=== PATIENT | female | born 1990 | race American Indian/Alaskan Native ===

== ENCOUNTER 2018-08-02 21:44 | Emergency (ER) | payer SELFPAY ==
[2018-08-02 21:56] VITALS: BP 123/83
[2018-08-02] MEDS ORDERED: NORCO 5/325 PO ONE (23:10)
--- NOTE | 2018-08-02 23:21 | Emergency Department Report ---
ED Fall HPI - General Chief Complaint: Fall Stated Complaint: FALL Time Seen by Provider: 08/02/18 23:07 Source: patient Mode of arrival: Ambulatory - History of Present Illness Initial Comments: Patient 27-year-old -[place] female who fell, coming out of a bathroom stall in a restaurant today causing pain and subjective swelling to right elbow low back and right hip is no bleeding abrasions or lacerations patient is ambulatory to himself to ER complains of 5/10 sharp pain elbow hip and low back. There is no obvious deformity MD Complaint: fall Onset/Timin -: hour(s) Fall From: standing When Fall Occurred: other (12 hrs ) Fall Witnessed: no Place Fall Occurred: other (restuarant) Loss of Consciousness: none Prolonged Down Time?: no Symptoms Prior to Fall: none Location: back, pelvis (right hip ) Location - Extremities: Right: Elbow Severity scale (0 -10): 5 Quality: sharp Context: tripped/slipped Associated Symptoms: denies - Related Data Previous Rx's Medication Instructions Recorded Last Taken Type Ibuprofen [Motrin] 800 mg PO Q8H PRN #20 tablet 01/29/15 Unknown Rx traMADol [Ultram] 50 mg PO Q6HR PRN #10 tablet 01/29/15 Unknown Rx Acetaminophen [Tylenol Extra 1,000 mg PO QID PRN #30 tablet 08/03/18 Unknown Rx Strength] Cyclobenzaprine [Flexeril] 10 mg PO BID PRN #20 tablet 08/03/18 Unknown Rx Menthol/Camphor [[place] 1 applicatio TP TID PRN #1 tube 08/03/18 Unknown Rx Ointment] Allergies Allergy/AdvReac Type Severity Reaction Status Date / Time ibuprofen [From Motrin] Allergy Swelling Verified 08/02/18 22:21 ED Review of Systems ROS: Stated complaint: FALL Other details as noted in HPI Constitutional: denies: chills, fever Eyes: denies: eye pain, eye discharge, vision change ENT: denies: ear pain, throat pain Respiratory: denies: cough, shortness of breath, wheezing Cardiovascular: denies: chest pain, palpitations Endocrine: no symptoms reported Gastrointestinal: denies: abdominal pain, nausea, diarrhea Genitourinary: denies: urgency, dysuria, discharge Musculoskeletal: back pain, myalgia, other (right elbow right hip pain ) Skin: denies: rash, lesions Neurological: denies: headache, weakness, paresthesias Psychiatric: denies: anxiety, depression Hematological/Lymphatic: denies: easy bleeding, easy bruising ED Past Medical Hx - Past Medical History Previous Medical History?: Yes Hx GERD: Yes Hx Asthma: Yes (as child) - Surgical History Past Surgical History?: No - Social History Smoking Status: Never Smoker Substance Use Type: None - Medications Home Medications: Home Medications Medication Instructions Recorded Confirmed Last Taken Type Ibuprofen [Motrin] 800 mg PO Q8H PRN #20 tablet 01/29/15 Unknown Rx traMADol [Ultram] 50 mg PO Q6HR PRN #10 tablet 01/29/15 Unknown Rx Acetaminophen [Tylenol Extra 1,000 mg PO QID PRN #30 tablet 08/03/18 Unknown Rx Strength] Cyclobenzaprine [Flexeril] 10 mg PO BID PRN #20 tablet 08/03/18 Unknown Rx Menthol/Camphor [[place] 1 applicatio TP TID PRN #1 tube 08/03/18 Unknown Rx Ointment] ED Physical Exam - General Limitations: No Limitations General appearance: alert, in no apparent distress - Head Head exam: Present: atraumatic, normocephalic - Eye Eye exam: Present: normal appearance - ENT ENT exam: Present: mucous membranes moist - Neck Neck exam: Present: normal inspection - Respiratory Respiratory exam: Present: normal lung sounds bilaterally. Absent: respiratory distress - Cardiovascular Cardiovascular Exam: Present: regular rate, normal rhythm. Absent: systolic murmur, diastolic murmur, rubs, gallop - GI/Abdominal GI/Abdominal exam: Present: soft, normal bowel sounds - Extremities Exam Extremities exam: Present: normal inspection, tenderness - Expanded Upper Extremity Exam Right Elbow exam: Present: full ROM, tenderness, pain w/ pronation/supination, tenderness over radial head. Absent: swelling, abrasion, laceration, ecchymosis , deformity, crepidus, dislocation, erythema, effusion Forearm Wrist exam: Present: normal inspection, full ROM Hand Wrist exam: Present: normal inspection, full ROM Neuro motor exam: Present: wrist extension intact, thumb opposition intact, thumb IP flexion intact, thumb adduction intact, fingers 2-5 abduction intact Neurosensory exam: Present: 2-point discrimination, radial nerve intact, ulnar nerve intact, median nerve intact Vascular: Present: normal capillary refill, radial pulse, brachial pulse, ulnar pulse. Absent: vascular compromise, Pallo, pulse deficit radial art, pulse deficit ulnar art, pulse deficit brachial art - Expanded Lower Extremity Exam Right Hip exam: Present: full ROM. Absent: tenderness, swelling, abrasion, laceration , ecchymosis, deformity, crepidus, dislocation, erythema, external rotation, internal rotation, shortening, pelvic stability Upper Leg exam: Present: normal inspection, full ROM Knee exam: Present: normal inspection, full ROM Lower Leg exam: Present: normal inspection, full ROM Ankle exam: Present: normal inspection, full ROM Foot/Toe exam: Present: normal inspection, full ROM Neuro vascular tendon exam: Present: no vascular compromise. Absent: pulse deficit Gait: Positive: observed and normal - Back Exam Back exam: Present: normal inspection, full ROM, tenderness (C), muscle spasm, paraspinal tenderness. Absent: CVA tenderness (R), CVA tenderness (L), vertebral tenderness, rash noted - Neurological Exam Neurological exam: Present: alert, oriented X3, CN II-XII intact, normal gait, motor sensory deficit. Absent: reflexes normal - Psychiatric Psychiatric exam: Present: normal affect, normal mood - Skin Skin exam: Present: warm, dry, intact, normal color. Absent: rash ED Course Vital Signs 08/02/18 21:55 Temperature 98.7 F Pulse Rate 88 Respiratory 18 Rate Blood Pressure 123/83 O2 Sat by Pulse 100 Oximetry ED Medical Decision Making - Radiology Data Radiology results: report reviewed, image reviewed X-rays normal back and elbow no fracture no soft tissue abnormalities - Medical Decision Making This is a fall and no fractures no elbow fractional back fracture noted fracture on x-rays were normal patient is ambulatory with steady gait exam supports x-ray findings there is no obvious deformity is no ecchymosis no bruising no lacerations plan treat for fall musculoskeletal pain NSAIDs and muscle relaxants moist heat therapy cryotherapy patient will follow up with PCP in 2-3 days patient will return the ED should symptoms worsen patient verbalizes agreement and understanding with discharge plan patient be DC'd home in stable condition at this time Critical care attestation.: If time is entered above; I have spent that time in minutes in the direct care of this critically ill patient, excluding procedure time. ED Disposition Clinical Impression: Musculoskeletal pain of extremity Fall Qualifiers: Encounter type: initial encounter Qualified Code(s): W19.XXXA - Unspecified fall, initial encounter Hip strain Qualifiers: Encounter type: initial encounter Laterality: right Qualified Code(s): S76.011A - Strain of muscle, fascia and tendon of right hip, initial encounter Low back strain Qualifiers: Encounter type: initial encounter Qualified Code(s): S39.012A - Strain of muscle, fascia and tendon of lower back, initial encounter Disposition: TO HOME OR SELFCARE Is pt being admited?: No Does the pt Need Aspirin: No Condition: Good Instructions: Low Back Strain (ED), Core Strengthening Exercises (GEN), Musculoskeletal Pain (ED) Prescriptions: Acetaminophen [Tylenol Extra Strength] 1,000 mg PO QID PRN #30 tablet PRN Reason: pain Cyclobenzaprine [Flexeril] 10 mg PO BID PRN #20 tablet PRN Reason: Muscle Spasm Menthol/Camphor [[place] Ointment] 1 applicatio TP TID PRN #1 tube PRN Reason: pain Referrals: PRIMARY CARE, [Primary Care Provider] - 3-5 Days Forms: Work/School Release Form(ED) Time of Disposition: 00:25
--- NOTE | 2018-08-03 00:06 | XRay Report ---
FINAL REPORT PROCEDURE: XR SPINE LUMBOSACRAL 2-3V TECHNIQUE: AP and lateral view were obtained. HISTORY: back pain s/p fall COMPARISON: No prior studies are available for comparison. FINDINGS: No fracture or subluxation is visualized. Disc spaces are well maintained. Posterior elements appear intact. Bone density appears normal. IMPRESSION: Negative exam. No acute abnormality is seen.
--- NOTE | 2018-08-03 00:07 | XRay Report ---
FINAL REPORT PROCEDURE: XR ELBOW 3+V RT TECHNIQUE: RIGHT elbow radiographs, including AP, lateral, and oblique views. CPT 74961 HISTORY: fall. Pain. COMPARISON: No prior studies are available for comparison. FINDINGS: Fracture (s) and/or Dislocation(s): None . Alignment: Normal . Joint space(s): Normal . Soft tissues: Normal . Bone mineralization: Normal . Foreign bodies: None . IMPRESSION: Negative examination
--- NOTE | 2018-08-03 00:09 | XRay Report ---
FINAL REPORT PROCEDURE: AP pelvis and frog-leg view right hip TECHNIQUE: Single AP view of the pelvis is obtained as well as frog-leg view of the right hip. HISTORY: hip pain s/p fall COMPARISON: No prior studies are available for comparison. FINDINGS: No fracture or dislocation visualized. Articular surfaces appear smooth. Joint spaces are well maintained. IMPRESSION: Negative exam.
== END 2018-08-03 00:35 | disposition home or self-care (01) ==
LOC: ED 21:44
DX: S76.011A Strain of muscle, fascia and tendon of right hip, initial encounter (principal); S39.012A Strain of muscle, fascia and tendon of lower back, initial encounter; M25.521 Pain in right elbow; J45.909 Unspecified asthma, uncomplicated; K21.9 Gastro-esophageal reflux disease without esophagitis; Z79.899 Other long term (current) drug therapy; Z88.6 Allergy status to analgesic agent; W18.30XA Fall on same level, unspecified, initial encounter; Y93.89 Activity, other specified; Y99.8 Other external cause status; Y92.511 Restaurant or cafe as the place of occurrence of the external cause
CPT/HCPCS: 72100; 99283